=== PATIENT | male | born 1950 | race Caucasian/White ===

== ENCOUNTER 2020-08-22 04:31 | Day surgery (SDC) | payer OTHER ==
[2020-08-21 14:10] VITALS: BMI 32.0
[~2020-08-22 04:31] MED LIST: BACITRACIN 50,000 UNITS VIAL TP ONE; BUPIVACAINE HCL/PF 0.25% (2.5MG/ML) 10 ML VIAL IJ ONE
[2020-08-22] MEDS ORDERED: BUPIVACAINE HCL/PF 0.25% (2.5MG/ML) 10 ML VIAL ONE (14:11)
[2020-08-22] MEDS ORDERED: LIDOCAINE 1%/EPI 1:100000 (50 ML MULTI DOSE VIAL) ONE (14:11)
[2020-08-22] MEDS ORDERED: SODIUM CHLORIDE 0.9% P/F 10 ML VIAL IJ ONE (14:14)
[2020-08-22] MEDS ORDERED: BACITRACIN 50,000 UNITS VIAL TP ONE (15:00)
[2020-08-22] MEDS ORDERED: BUPIVACAINE HCL/PF 0.25% (2.5MG/ML) 10 ML VIAL IJ ONE ×2 (15:00)
[2020-08-22] MEDS ORDERED: MINERAL OIL 25 ML OIL TP ONE (15:18)
[2020-08-22] MEDS ORDERED: BACITRACIN 15 GM TUBE TOPICAL OINTMENT ONE (15:38)
[2020-08-22] MEDS ORDERED: CEFAZOLIN 1 GM in DEXTROSE 5%-WATER - 50 ML IVPB ONE (16:02)
[2020-08-22] MEDS ORDERED: oxyCODONE HCL 5 MG TABLET PO PRN ×2 (16:02)
[2020-08-22] MEDS ORDERED: ACETAMINOPHEN INJECTION 100 ML IVPB ONE (16:07)
[2020-08-22] MEDS ORDERED: ACETAMINOPHEN 1000 MG/100 ML VIAL (NON FORMULARY) IVPB ONE (16:12)
[2020-08-22] MEDS ORDERED: ceFAZolin SODIUM 1 GM VIAL ONE (16:30)
[2020-08-22 17:21] VITALS: BP 150/80; TEMP 98.1
[2020-08-22 17:39] VITALS: PULSE 65
== END 2020-08-22 17:20 | disposition home or self-care (01) ==
LOC: JASU-SURG 04:31
PROVIDERS: ATTEND Plastic Surgery
PROC: 0HRLX74 Replacement of Left Lower Leg Skin with Autologous Tissue Substitute, Partial Thickness, External Approach (ICD-10-PCS; 2020-08-22)
PROC: 0HBJXZZ Excision of Left Upper Leg Skin, External Approach (ICD-10-PCS; 2020-08-22)
PROC: 0JBP0ZZ Excision of Left Lower Leg Subcutaneous Tissue and Fascia, Open Approach (ICD-10-PCS; principal; 2020-08-22 14:00)
DX: T81.31XA Disruption of external operation (surgical) wound, not elsewhere classified, initial encounter (principal); Z85.828 Personal history of other malignant neoplasm of skin
CPT/HCPCS: 87070; 87077; 87186; 87205; 88305-TC; J0131

== ENCOUNTER 2020-09-21 19:00 | Inpatient (IN) | payer OTHER ==
[2020-09-21 19:18] VITALS: BMI 32.0
[2020-09-21] MEDS ORDERED: VANCOMYCIN 1 GM in D5W (PRE-DOCKED) 1,000 MG/250 ML IVPB ONE (19:57)
[2020-09-21] MEDS ORDERED: PIPERACILLIN/TAZOB 4.5 GM 4.5 GM in DEXTROSE 5%-WATER 100 ML IVPB ONE (19:57)
[2020-09-21] MEDS ORDERED: PIPERACILLIN/TAZOBACTAM 4.5 GM VIAL IVPB ONE (20:01)
[2020-09-21] MEDS ORDERED: VANCOMYCIN 1,000 MG VIAL (RESTRICTED TO ID ONLY) ONE (20:01)
[2020-09-21 20:13] LABS: HEMOGLOBIN 15.5 GM/dl (11.7-16.9); MCH 32.9 pg (25.7-33.7); MCHC 33.7 g/dl (32.0-35.9); MEAN CELL VOLUME 97.7 fl (80-96); MEAN PLT VOLUME 8.8 fl (7.5-11.1); PLATELET COUNT 108 K/MM3 (134-434); RBC 4.71 M/mm3 (4.00-5.60); RDW 13.3 % (11.9-15.9); WHITE BLOOD COUNT 11.8 K/mm3 (4.0-10.8)
[2020-09-21 20:15] LABS: ALBUMIN 4.4 g/dl (3.4-5.0); BILIRUBIN,TOTAL 0.6 mg/dl (0.2-1); CALCIUM 9.3 mg/dl (8.5-10); CREATININE 0.9 mg/dl (0.55-1.3); POTASSIUM 4.3 mmol/L (3.5-5.1); TOT PROT 7.5 g/dl (6.4-8.2)
[2020-09-21 21:14] LABS: PLATELET ESTIMATE SLT DECREASE
[2020-09-21] MEDS ORDERED: ATORVASTATIN CA 20 MG TABLET (FP) ONE (21:37)
[2020-09-21] MEDS ORDERED: VANCOMYCIN 500 MG VIAL (RESTRICTED TO ID ONLY) ONE (21:37)
[2020-09-21] MEDS ORDERED: HEPARIN NA (PORCINE) 5,000 UNITS/ML 1ML VIAL ONE (21:37)
[2020-09-21] MEDS: HEPARIN NA (PORCINE) 5,000 UNITS/ML 1ML VIAL SQ SCH (21:48)
[2020-09-21] MEDS: ATORVASTATIN CA 10 MG TABLET (FP) PO SCH (21:49)
[2020-09-21] MEDS ORDERED: VANCOMYCIN HCL 1,500 MG in DEXTROSE 5%-WATER - 500 ML IVPB ONE (22:00)
[2020-09-21] MEDS ORDERED: IBUPROFEN 600 MG TABLET (FP) PO ONE (23:49)
[2020-09-22] MEDS ORDERED: DEXTROSE 5%-WATER 100 ML IVPB ONE (03:56)
[2020-09-22] MEDS ORDERED: PIPERACILLIN/TAZOBACTAM 4.5 GM VIAL IVPB ONE (03:56)
[2020-09-22] MEDS ORDERED: PIPERACILLIN/TAZOB 4.5 GM 4.5 GM in DEXTROSE 5%-WATER 100 ML IVPB SCH (04:00)
[2020-09-22] MEDS: traMADol HCL 50 MG TABLET PO PRN ×2 (06:24→22:17)
[2020-09-22 08:18] LABS: BASO % 1.3 % (0-2.0); HEMATOCRIT 43.8 % (35.4-49); HEMOGLOBIN 15.3 GM/dl (11.7-16.9); LYMPH % 18.6 % (8-40); MCH 34.5 pg (25.7-33.7); MCHC 34.9 g/dl (32.0-35.9); MEAN CELL VOLUME 98.8 fl (80-96); MEAN PLT VOLUME 8.6 fl (7.5-11.1); MONO % 6.9 % (3.8-10.2); NEUT % 71.2 % (42.8-82.8); PLATELET COUNT 164 K/MM3 (134-434); RBC 4.43 M/mm3 (4.00-5.60); RDW 13.3 % (11.9-15.9); WHITE BLOOD COUNT 10.8 K/mm3 (4.0-10.8)
[2020-09-22 08:27] LABS: BILIRUBIN,TOTAL 0.8 mg/dl (0.2-1); CREATININE 0.9 mg/dl (0.55-1.3); TOT PROT 6.5 g/dl (6.4-8.2)
[2020-09-22] MEDS: VANCOMYCIN/WATER BAGS 1,250 MG/250 ML BAG IVPB SCH (09:48)
[2020-09-22] MEDS ORDERED: VANCOMYCIN HCL 1,500 MG in DEXTROSE 5%-WATER - 500 ML IVPB SCH (10:00)
[2020-09-22] MEDS ORDERED: PATIENT'S OWN MEDICATION (NON-FORMULARY) (Pravastatin Sodium 40 MG Tablet) PO SCH (10:00)
[2020-09-22] MEDS ORDERED: PATIENT'S OWN MEDICATION (NON-FORMULARY) (Candesartan/Hydrochlorothiazid [Candesartan-Hctz PO SCH (10:00)
[2020-09-22] MEDS: MULTIVITAMINS (DAILY MVI) TABLET (FP) PO SCH (10:04)
[2020-09-22] MEDS: metoPROLOL SUCCINATE 25 MG TAB.SR.24H (FP) PO SCH (10:04)
[2020-09-22] MEDS: HYDROCHLOROTHIAZIDE 12.5 MG CAPSULE (FP) PO SCH (10:04)
[2020-09-22] MEDS: ASCORBIC ACID 500 MG TABLET (FP) PO SCH (10:05)
[2020-09-22] MEDS: COLLAGENASE CLOSTRIDIUM HIST. 30 GRAMS TUBE TP SCH (10:05)
[2020-09-22] MEDS: VALSARTAN 160 MG TABLET PO SCH (10:07)
[2020-09-22] MEDS: HEPARIN NA (PORCINE) 5,000 UNITS/ML 1ML VIAL SQ SCH ×2 (10:07→21:36)
[2020-09-22] MEDS: ASPIRIN 81 MG CHEWABLE TABLETS PO SCH (10:08)
[2020-09-22] MEDS ORDERED: DEXTROSE 5%-WATER - 50 ML IVPB ONE ×2 (11:04→17:24)
[2020-09-22] MEDS ORDERED: PIPERACILLIN/TAZOBACTAM 3.375 GM VIAL IVPB ONE ×2 (11:04→17:24)
[2020-09-22] MEDS: PIPERACILLIN/TAZOB 3.375 GM 3.375 GM in DEXTROSE 5%-WATER - 50 ML IVPB SCH ×2 (11:07→17:32)
[2020-09-22] MEDS: ATORVASTATIN CA 10 MG TABLET (FP) PO SCH (21:36)
[2020-09-22] MEDS ORDERED: IBUPROFEN 600 MG TABLET (FP) PO ONE (22:01)
[2020-09-23] MEDS ORDERED: PIPERACILLIN/TAZOBACTAM 3.375 GM VIAL IVPB ONE (01:15)
[2020-09-23] MEDS ORDERED: DEXTROSE 5%-WATER - 50 ML IVPB ONE (01:15)
[2020-09-23] MEDS: PIPERACILLIN/TAZOB 3.375 GM 3.375 GM in DEXTROSE 5%-WATER - 50 ML IVPB SCH ×3 (01:21→17:52)
[2020-09-23 08:31] LABS: BASO % 2.1 % (0-2.0); EOS % 2.6 % (0-4.5); HEMATOCRIT 44.3 % (35.4-49); MCH 33.3 pg (25.7-33.7); MCHC 33.8 g/dl (32.0-35.9); MEAN CELL VOLUME 98.4 fl (80-96); MEAN PLT VOLUME 8.4 fl (7.5-11.1); MONO % 7.7 % (3.8-10.2); NEUT % 59.6 % (42.8-82.8); PLATELET COUNT 171 K/MM3 (134-434); RDW 13.5 % (11.9-15.9); WHITE BLOOD COUNT 9.2 K/mm3 (4.0-10.8)
[2020-09-23 08:47] LABS: CALCIUM 8.9 mg/dl (8.5-10); CREATININE 0.9 mg/dl (0.55-1.3); POTASSIUM 4.1 mmol/L (3.5-5.1)
[2020-09-23] MEDS ORDERED: PT OWN MED DRAWER 7, Y5N ONE (09:42)
[2020-09-23] MEDS: MULTIVITAMINS (DAILY MVI) TABLET (FP) PO SCH (10:01)
[2020-09-23] MEDS: VALSARTAN 160 MG TABLET PO SCH (10:02)
[2020-09-23] MEDS: ASCORBIC ACID 500 MG TABLET (FP) PO SCH (10:02)
[2020-09-23] MEDS: COLLAGENASE CLOSTRIDIUM HIST. 30 GRAMS TUBE TP SCH (10:03)
[2020-09-23] MEDS: metoPROLOL SUCCINATE 25 MG TAB.SR.24H (FP) PO SCH (10:03)
[2020-09-23] MEDS: HYDROCHLOROTHIAZIDE 12.5 MG CAPSULE (FP) PO SCH (10:04)
[2020-09-23] MEDS: ASPIRIN 81 MG CHEWABLE TABLETS PO SCH (10:04)
[2020-09-23] MEDS: HEPARIN NA (PORCINE) 5,000 UNITS/ML 1ML VIAL SQ SCH ×2 (10:04→21:20)
[2020-09-23] MEDS: VANCOMYCIN/WATER BAGS 1,250 MG/250 ML BAG IVPB SCH (12:25)
[2020-09-23] MEDS: ATORVASTATIN CA 10 MG TABLET (FP) PO SCH (21:13)
[2020-09-23] MEDS: traMADol HCL 50 MG TABLET PO PRN (21:22)
[2020-09-23] MEDS ORDERED: IBUPROFEN 600 MG TABLET (FP) PO ONE (22:00)
[2020-09-24] MEDS: PIPERACILLIN/TAZOB 3.375 GM 3.375 GM in DEXTROSE 5%-WATER - 50 ML IVPB SCH ×3 (02:02→18:39)
[2020-09-24] MEDS ORDERED: DEXTROSE 5%-WATER - 50 ML IVPB ONE ×2 (08:34→17:50)
[2020-09-24] MEDS ORDERED: PT OWN MED DRAWER 7, Y5N ONE (08:34)
[2020-09-24] MEDS ORDERED: PIPERACILLIN/TAZOBACTAM 3.375 GM VIAL IVPB ONE ×2 (08:34→17:50)
[2020-09-24] MEDS: VANCOMYCIN/WATER BAGS 1,250 MG/250 ML BAG IVPB SCH (08:48)
[2020-09-24] MEDS: ASCORBIC ACID 500 MG TABLET (FP) PO SCH (09:06)
[2020-09-24] MEDS: VALSARTAN 160 MG TABLET PO SCH (09:06)
[2020-09-24] MEDS: metoPROLOL SUCCINATE 25 MG TAB.SR.24H (FP) PO SCH (09:06)
[2020-09-24] MEDS: MULTIVITAMINS (DAILY MVI) TABLET (FP) PO SCH (09:06)
[2020-09-24] MEDS: COLLAGENASE CLOSTRIDIUM HIST. 30 GRAMS TUBE TP SCH (09:06)
[2020-09-24] MEDS: HYDROCHLOROTHIAZIDE 12.5 MG CAPSULE (FP) PO SCH (09:06)
[2020-09-24] MEDS: HEPARIN NA (PORCINE) 5,000 UNITS/ML 1ML VIAL SQ SCH ×2 (09:17→21:01)
[2020-09-24] MEDS: ASPIRIN 81 MG CHEWABLE TABLETS PO SCH (09:17)
[2020-09-24] MEDS ORDERED: IBUPROFEN 600 MG TABLET (FP) PO ONE (20:24)
[2020-09-24] MEDS: traMADol HCL 50 MG TABLET PO PRN (20:59)
[2020-09-24] MEDS: ATORVASTATIN CA 10 MG TABLET (FP) PO SCH (21:00)
[2020-09-25] MEDS ORDERED: DEXTROSE 5%-WATER - 50 ML IVPB ONE ×2 (01:49→07:49)
[2020-09-25] MEDS ORDERED: PIPERACILLIN/TAZOBACTAM 3.375 GM VIAL IVPB ONE ×3 (01:49→08:45)
[2020-09-25] MEDS: PIPERACILLIN/TAZOB 3.375 GM 3.375 GM in DEXTROSE 5%-WATER - 50 ML IVPB SCH (02:44)
[2020-09-25] MEDS ORDERED: LIDOCAINE HCL 1%, 10 MG/ML (20ML VIAL) ONE (07:19)
[2020-09-25] MEDS ORDERED: HEPARIN NA (PORCINE) 5,000 UNITS/ML 1ML VIAL ONE (07:19)
[2020-09-25] MEDS ORDERED: PROPOFOL 20 ML ONE (07:27)
[2020-09-25] MEDS ORDERED: MIDAZOLAM HCL 2 MG/2 ML SINGLE DOSE VIAL ONE ×2 (07:28→09:02)
[2020-09-25] MEDS ORDERED: SUCCINYLCHOLINE CHLORIDE 200 MG/10 ML SYRINGE ONE (07:28)
[2020-09-25] MEDS: VALSARTAN 160 MG TABLET PO SCH ×2 (07:53→09:20)
[2020-09-25] MEDS: HYDROCHLOROTHIAZIDE 12.5 MG CAPSULE (FP) PO SCH ×2 (07:54→09:25)
[2020-09-25] MEDS: metoPROLOL SUCCINATE 25 MG TAB.SR.24H (FP) PO SCH ×2 (07:54→09:26)
[2020-09-25] MEDS ORDERED: VANCOMYCIN 1,000 MG VIAL (RESTRICTED TO ID ONLY) IVPB ONE (08:30)
[2020-09-25] MEDS ORDERED: LIDOCAINE HCL 1%, 10 MG/ML (20ML VIAL) INF ONE ×2 (09:13)
[2020-09-25] MEDS: ASPIRIN 81 MG CHEWABLE TABLETS PO SCH (09:20)
[2020-09-25] MEDS: ASCORBIC ACID 500 MG TABLET (FP) PO SCH (09:26)
[2020-09-25] MEDS: HEPARIN NA (PORCINE) 5,000 UNITS/ML 1ML VIAL SQ SCH (09:26)
[2020-09-25] MEDS: MULTIVITAMINS (DAILY MVI) TABLET (FP) PO SCH (09:26)
[2020-09-25] MEDS: COLLAGENASE CLOSTRIDIUM HIST. 30 GRAMS TUBE TP SCH (09:27)
[2020-09-25] MEDS ORDERED: CLOPIDOGREL BISULFATE 75 MG TABLET (FP) PO SCH (10:00)
[2020-09-25] MEDS ORDERED: CLOPIDOGREL BISULFATE 75 MG TABLET (FP) PO ONE (10:20)
[2020-09-25] MEDS ORDERED: traMADol HCL 50 MG TABLET PO PRN (10:31)
[2020-09-25] MEDS ORDERED: ONDANSETRON 4 MG/2 ML VIAL IVPUSH PRN (10:31)
[2020-09-25] MEDS ORDERED: LACTATED RINGERS SOLUTION 1,000 ML IV SCH (10:45)
[2020-09-25 11:39] VITALS: BP 149/65; PULSE 62; TEMP 97.8
[2020-09-25] MEDS ORDERED: PIPERACILLIN/TAZOB 3.375 GM 3.375 GM in DEXTROSE 5%-WATER - 50 ML IVPB SCH (18:00)
[2020-09-25] MEDS ORDERED: HEPARIN NA (PORCINE) 5,000 UNITS/ML 1ML VIAL SQ SCH (22:00)
[2020-09-25] MEDS ORDERED: ATORVASTATIN CA 10 MG TABLET (FP) PO SCH (22:00)
[2020-09-26] MEDS ORDERED: VANCOMYCIN/WATER BAGS 1,250 MG/250 ML BAG IVPB SCH (08:30)
[2020-09-26] MEDS ORDERED: COLLAGENASE CLOSTRIDIUM HIST. 30 GRAMS TUBE TP SCH (10:00)
[2020-09-26] MEDS ORDERED: VALSARTAN 160 MG TABLET PO SCH (10:00)
[2020-09-26] MEDS ORDERED: HYDROCHLOROTHIAZIDE 12.5 MG CAPSULE (FP) PO SCH (10:00)
[2020-09-26] MEDS ORDERED: MULTIVITAMINS (DAILY MVI) TABLET (FP) PO SCH (10:00)
[2020-09-26] MEDS ORDERED: ASCORBIC ACID 500 MG TABLET (FP) PO SCH (10:00)
[2020-09-26] MEDS ORDERED: ASPIRIN 81 MG CHEWABLE TABLETS PO SCH (10:00)
[2020-09-26] MEDS ORDERED: metoPROLOL SUCCINATE 25 MG TAB.SR.24H (FP) PO SCH (10:00)
== END 2020-09-25 16:52 | disposition home or self-care (01) | DRG 253 ==
LOC: FER 19:00 → FM/S 20:03 → UNDOADMIN 09-22 00:15 → J4W 09-24 16:20
PROVIDERS: ADMIT Internal Medicine; ATTEND Family Medicine
PROC: B40DYZZ Plain Radiography of Aorta and Bilateral Lower Extremity Arteries using Other Contrast (ICD-10-PCS; 2020-09-25)
PROC: B40GYZZ Plain Radiography of Left Lower Extremity Arteries using Other Contrast (ICD-10-PCS; 2020-09-25)
PROC: 3E033GC Introduction of Other Therapeutic Substance into Peripheral Vein, Percutaneous Approach (ICD-10-PCS; 2020-09-25)
PROC: 047L3DZ Dilation of Left Femoral Artery with Intraluminal Device, Percutaneous Approach (ICD-10-PCS; principal; 2020-09-25 09:00)
DX: I73.9 Peripheral vascular disease, unspecified (principal); L97.828 Non-pressure chronic ulcer of other part of left lower leg with other specified severity; L03.116 Cellulitis of left lower limb; I25.10 Atherosclerotic heart disease of native coronary artery without angina pectoris; I10 Essential (primary) hypertension; E78.5 Hyperlipidemia, unspecified; F17.210 Nicotine dependence, cigarettes, uncomplicated; S81.802A Unspecified open wound, left lower leg, initial encounter; Z20.822 Contact with and (suspected) exposure to COVID-19; Z95.5 Presence of coronary angioplasty implant and graft
CPT/HCPCS: 36415; 71045-TC-FY; 73590-TC-LT-FY; 76000-TC-FY; 80048; 80053; 83605; 85025; 85651; 86140; 86850; 86900; 86901; 87040; 93005; 93971-TC; 94760; 99285-25; C9803; G0480; J1644; U0003

== ENCOUNTER 2020-10-16 09:56 | Inpatient (IN) | payer OTHER ==
[2020-10-16 10:01] VITALS: BMI 32.0
[2020-10-16] MEDS ORDERED: VANCOMYCIN 1,000 MG in DEXTROSE 5%-WATER - 250 ML IVPB ONE (11:13)
[2020-10-16] MEDS ORDERED: PIPERACILLIN/TAZOB 3.375 GM 3.375 GM in DEXTROSE 5%-WATER - 50 ML IVPB ONE (11:14)
[2020-10-16] MEDS ORDERED: VANCOMYCIN 1 GRAM (PRE-DOCKED) 1,000 MG/250 ML BAG IVPB ONE (11:36)
[2020-10-16] MEDS ORDERED: PIPERACILLIN/TAZOB 3.375 GM 3.375 GM/50 ML BAG IVPB ONE ×2 (11:37→18:34)
[2020-10-16 11:46] LABS: BASO % 0.6 % (0-2.0); EOS % 1.9 % (0-4.5); HEMATOCRIT 44.1 % (35.4-49); HEMOGLOBIN 15.3 GM/dL (11.7-16.9); LYMPH % 20.9 % (8-40); MCH 33.7 pg (25.7-33.7); MCHC 34.6 g/dl (32.0-35.9); MEAN CELL VOLUME 97.4 fl (80-96); MEAN PLT VOLUME 8.3 fl (7.5-11.1); NEUT % 70.6 % (42.8-82.8); PLATELET COUNT 191 K/MM3 (134-434); RBC 4.53 M/mm3 (4.00-5.60); RDW 14.1 % (11.9-15.9); WHITE BLOOD COUNT 12.6 K/mm3 (4.0-10.0)
[2020-10-16 11:54] LABS: INR 0.97 (0.83-1.09); PROTHROMBIN TIME (PATIENT) 11.7 SEC (9.7-13.0)
[2020-10-16 12:09] LABS: POTASSIUM 4.2 mmol/L (3.5-5.1)
[2020-10-16 12:13] LABS: ALBUMIN 4.2 g/dl (3.4-5.0); BLOOD UREA NITROGEN 22.7 mg/dL (7-18); CALCIUM 9.9 mg/dL (8.5-10.1)
[2020-10-16 12:19] LABS: BILIRUBIN,TOTAL 0.4 mg/dL (0.2-1); TOT PROT 7.7 g/dl (6.4-8.2)
[2020-10-16] MEDS ORDERED: IBUPROFEN 400 MG TABLET (FP) PO ONE ×2 (14:37→14:38)
[2020-10-16] MEDS: PIPERACILLIN/TAZOB 3.375 GM 3.375 GM in DEXTROSE 5%-WATER - 50 ML IVPB SCH (18:41)
[2020-10-16] MEDS ORDERED: ATORVASTATIN CA 10 MG TABLET (FP) PO SCH (22:00)
[2020-10-16] MEDS ORDERED: GABAPENTIN 300 MG CAPSULE PO SCH (22:00)
[2020-10-16] MEDS ORDERED: ACETAMINOPHEN 500 MG TABLET (FP) PO ONE (23:42)
[2020-10-17] MEDS ORDERED: PIPERACILLIN/TAZOBACTAM 3.375 GM VIAL IVPB ONE ×3 (01:30→17:22)
[2020-10-17] MEDS ORDERED: DEXTROSE 5%-WATER - 50 ML IVPB ONE ×3 (01:30→17:22)
[2020-10-17] MEDS: PIPERACILLIN/TAZOB 3.375 GM 3.375 GM in DEXTROSE 5%-WATER - 50 ML IVPB SCH ×3 (02:00→17:41)
[2020-10-17] MEDS ORDERED: DEXTROSE 5%-NORMAL SALINE 1,000 ML IV SCH ×2 (08:45→16:13)
[2020-10-17] MEDS ORDERED: PATIENT'S OWN MEDICATION (NON-FORMULARY) (Candesartan/Hydrochlorothiazid [Candesartan-Hctz PO SCH (10:00)
[2020-10-17] MEDS ORDERED: ASCORBIC ACID 500 MG TABLET (FP) PO SCH (10:00)
[2020-10-17] MEDS ORDERED: VALSARTAN 160 MG TABLET PO SCH (10:00)
[2020-10-17] MEDS ORDERED: metoPROLOL SUCCINATE 25 MG TAB.SR.24H (FP) PO SCH (10:00)
[2020-10-17] MEDS ORDERED: VANCOMYCIN HCL 1,500 MG in DEXTROSE 5%-WATER - 500 ML IVPB SCH (10:00)
[2020-10-17] MEDS ORDERED: CLOPIDOGREL BISULFATE 75 MG TABLET (FP) PO SCH (10:00)
[2020-10-17] MEDS ORDERED: HYDROCHLOROTHIAZIDE 12.5 MG CAPSULE (FP) PO SCH (10:00)
[2020-10-17] MEDS ORDERED: ERGOCALCIFEROL (VIT D2) 50,000 UNIT (1.25 MG) CAPSULE PO SCH (10:00)
[2020-10-17] MEDS ORDERED: ASPIRIN 81 MG CHEWABLE TABLETS PO SCH (10:00)
[2020-10-17] MEDS ORDERED: VANCOMYCIN PREMIX 1.5 GM 1,500 MG/300 ML BAG IVPB SCH (12:44)
[2020-10-17] MEDS ORDERED: LIDOCAINE 1%/EPI 1:100000 (50 ML MULTI DOSE VIAL) ONE (14:02)
[2020-10-17] MEDS ORDERED: LIDOCAINE HCL 1%, 10 MG/ML (20ML VIAL) ONE (14:02)
[2020-10-17] MEDS ORDERED: BUPIVACAINE HCL/PF 0.25% (2.5MG/ML) 10 ML VIAL ONE (14:05)
[2020-10-17] MEDS ORDERED: oxyCODONE HCL 5 MG TABLET PO PRN ×2 (14:12→16:13)
[2020-10-17] MEDS ORDERED: PROMETHAZINE HCL 25 MG/1 ML VIAL IVPB PRN ×2 (14:12→16:13)
[2020-10-17] MEDS ORDERED: ONDANSETRON 4 MG/2 ML VIAL IVPUSH PRN ×2 (14:12→16:13)
[2020-10-17] MEDS ORDERED: LACTATED RINGERS SOLUTION 1,000 ML IV SCH (14:15)
[2020-10-17] MEDS ORDERED: MINERAL OIL 25 ML OIL TP ONE (14:30)
[2020-10-17] MEDS ORDERED: BACITRACIN 50,000 UNITS VIAL TP ONE (14:35)
[2020-10-17] MEDS ORDERED: BUPIVACAINE HCL/PF 0.25% (2.5MG/ML) 10 ML VIAL IJ ONE ×3 (14:58)
[2020-10-17] MEDS ORDERED: LIDOCAINE 1%/EPI 1:100000 (50 ML MULTI DOSE VIAL) NR ONE ×3 (14:58)
[2020-10-17] MEDS: LACTATED RINGERS SOLUTION 1,000 ML IV SCH (17:26)
[2020-10-17] MEDS ORDERED: IBUPROFEN 400 MG TABLET (FP) PO ONE (20:11)
[2020-10-17] MEDS ORDERED: PT OWN MED DRAWER 7, Y5N ONE (20:45)
[2020-10-17] MEDS: GABAPENTIN 300 MG CAPSULE PO SCH (21:05)
[2020-10-17] MEDS: ATORVASTATIN CA 10 MG TABLET (FP) PO SCH (21:06)
[2020-10-17] MEDS: VANCOMYCIN PREMIX 1.5 GM 1,500 MG/300 ML BAG IVPB SCH (21:31)
[2020-10-17] MEDS ORDERED: PATIENT'S OWN MEDICATION (NON-FORMULARY) (Gabapentin [Neurontin] 600 MG Tablet) PO SCH (22:00)
[2020-10-18] MEDS ORDERED: PT OWN MED DRAWER 7, Y5N ONE ×3 (02:09→20:35)
[2020-10-18] MEDS ORDERED: PIPERACILLIN/TAZOBACTAM 3.375 GM VIAL IVPB ONE ×3 (02:09→17:52)
[2020-10-18] MEDS ORDERED: DEXTROSE 5%-WATER - 50 ML IVPB ONE ×3 (02:09→17:52)
[2020-10-18] MEDS: PIPERACILLIN/TAZOB 3.375 GM 3.375 GM in DEXTROSE 5%-WATER - 50 ML IVPB SCH ×3 (02:14→18:10)
[2020-10-18] MEDS: LACTATED RINGERS SOLUTION 1,000 ML IV SCH ×2 (02:15→16:35)
[2020-10-18 08:25] LABS: HEMATOCRIT 41.8 % (35.4-49); HEMOGLOBIN 14.2 GM/dL (11.7-16.9); MCH 33.5 pg (25.7-33.7); MEAN CELL VOLUME 98.3 fl (80-96); MEAN PLT VOLUME 8.8 fl (7.5-11.1); PLATELET COUNT 179 K/MM3 (134-434); RBC 4.25 M/mm3 (4.00-5.60); RDW 13.9 % (11.9-15.9); WHITE BLOOD COUNT 16.1 K/mm3 (4.0-10.0)
[2020-10-18 08:54] LABS: POTASSIUM 4.2 mmol/L (3.5-5.1)
[2020-10-18 08:57] LABS: ALBUMIN 3.6 g/dl (3.4-5.0); BLOOD UREA NITROGEN 23.8 mg/dL (7-18)
[2020-10-18 09:01] LABS: BILIRUBIN,TOTAL 0.5 mg/dL (0.2-1)
[2020-10-18 09:02] LABS: TOT PROT 6.7 g/dl (6.4-8.2)
[2020-10-18] MEDS: VALSARTAN 160 MG TABLET PO SCH (10:40)
[2020-10-18] MEDS: HYDROCHLOROTHIAZIDE 12.5 MG CAPSULE (FP) PO SCH (10:40)
[2020-10-18] MEDS: CLOPIDOGREL BISULFATE 75 MG TABLET (FP) PO SCH (10:41)
[2020-10-18] MEDS: metoPROLOL SUCCINATE 25 MG TAB.SR.24H (FP) PO SCH (10:41)
[2020-10-18] MEDS: ASCORBIC ACID 500 MG TABLET (FP) PO SCH (10:41)
[2020-10-18] MEDS: MULTIVITAMINS (DAILY MVI) TABLET (FP) PO SCH (10:41)
[2020-10-18] MEDS: VANCOMYCIN PREMIX 1.5 GM 1,500 MG/300 ML BAG IVPB SCH ×2 (11:13→21:14)
[2020-10-18] MEDS: ATORVASTATIN CA 10 MG TABLET (FP) PO SCH (21:14)
[2020-10-18] MEDS: GABAPENTIN 300 MG CAPSULE PO SCH (21:14)
[2020-10-19] MEDS ORDERED: PIPERACILLIN/TAZOBACTAM 3.375 GM VIAL IVPB ONE ×2 (01:02→10:32)
[2020-10-19] MEDS ORDERED: DEXTROSE 5%-WATER - 50 ML IVPB ONE ×2 (01:02→10:32)
[2020-10-19] MEDS: PIPERACILLIN/TAZOB 3.375 GM 3.375 GM in DEXTROSE 5%-WATER - 50 ML IVPB SCH ×2 (01:24→10:42)
[2020-10-19] MEDS: LACTATED RINGERS SOLUTION 1,000 ML IV SCH (01:44)
[2020-10-19] MEDS ORDERED: PT OWN MED DRAWER 7, Y5N ONE (10:31)
[2020-10-19] MEDS: VALSARTAN 160 MG TABLET PO SCH (10:41)
[2020-10-19] MEDS: HYDROCHLOROTHIAZIDE 12.5 MG CAPSULE (FP) PO SCH (10:41)
[2020-10-19] MEDS: MULTIVITAMINS (DAILY MVI) TABLET (FP) PO SCH (10:42)
[2020-10-19] MEDS: metoPROLOL SUCCINATE 25 MG TAB.SR.24H (FP) PO SCH (10:42)
[2020-10-19] MEDS: CLOPIDOGREL BISULFATE 75 MG TABLET (FP) PO SCH (10:42)
[2020-10-19] MEDS: ASCORBIC ACID 500 MG TABLET (FP) PO SCH (10:42)
[2020-10-19] MEDS: VANCOMYCIN PREMIX 1.5 GM 1,500 MG/300 ML BAG IVPB SCH (11:22)
[2020-10-19 16:03] VITALS: BP 155/79; PULSE 66; TEMP 98.5
[2020-10-24] MEDS ORDERED: ERGOCALCIFEROL (VIT D2) 50,000 UNIT (1.25 MG) CAPSULE PO SCH (10:00)
== END 2020-10-19 16:44 | disposition home health service (06) | DRG 902 ==
LOC: JER 09:56 → JERBED 11:23 → J8W 22:01 → J2C 10-17 16:27 → J8W 10-17 16:29
PROVIDERS: ADMIT Family Medicine; ATTEND Family Medicine
PROC: 0HRLX74 Replacement of Left Lower Leg Skin with Autologous Tissue Substitute, Partial Thickness, External Approach (ICD-10-PCS; 2020-10-17)
PROC: 0JBP0ZZ Excision of Left Lower Leg Subcutaneous Tissue and Fascia, Open Approach (ICD-10-PCS; principal; 2020-10-17 14:00)
DX: T81.32XA Disruption of internal operation (surgical) wound, not elsewhere classified, initial encounter (principal); L97.929 Non-pressure chronic ulcer of unspecified part of left lower leg with unspecified severity; I25.10 Atherosclerotic heart disease of native coronary artery without angina pectoris; I10 Essential (primary) hypertension; E78.5 Hyperlipidemia, unspecified; I73.9 Peripheral vascular disease, unspecified; Y83.8 Other surgical procedures as the cause of abnormal reaction of the patient, or of later complication, without mention of misadventure at the time of the procedure
CPT/HCPCS: 36415; 71046-TC-FY; 80053; 85025; 85027; 85610; 86850; 86900; 86901; 88304-TC; 93005; 93010; 94760; 99285-25; C9803; G0277; U0003

== ENCOUNTER 2021-11-02 12:31 | Inpatient (IN) | payer BC, OTHER ==
[2021-11-02 14:07] LABS: BASO % 0.5 % (0-2.0); EOS % 1.1 % (0-4.5); HEMOGLOBIN 15.5 GM/dL (11.7-16.9); MCH 33.9 pg (25.7-33.7); MCHC 34.4 g/dl (32.0-35.9); MEAN CELL VOLUME 98.5 fl (80-96); MEAN PLT VOLUME 9.1 fl (7.5-11.1); NEUT % 71.4 % (42.8-82.8); PLATELET COUNT 152 10^3/uL (134-434); RBC 4.57 M/mm3 (4.00-5.60); RDW 13.9 % (11.9-15.9); WHITE BLOOD COUNT 7.9 K/mm3 (4.0-10.0)
[2021-11-02 14:23] LABS: CALCIUM 9.3 mg/dL (8.5-10.1)
[2021-11-02 14:24] LABS: ALBUMIN 4.1 g/dl (3.4-5.0); MAGNESIUM 2.3 mg/dL (1.8-2.4)
[2021-11-02 14:29] LABS: BILIRUBIN,TOTAL 0.4 mg/dL (0.2-1)
[2021-11-02] MEDS ORDERED: metoPROLOL SUCCINATE 25 MG TAB.SR.24H (FP) PO ONE (16:05)
[2021-11-02] MEDS ORDERED: ACETAMINOPHEN 325 MG TABLET (FP) PO PRN (16:07)
[2021-11-02] MEDS ORDERED: metoPROLOL SUCCINATE 25 MG TAB.SR.24H (FP) ONE (16:15)
[2021-11-02 17:11] LABS: INR 1.14 (0.83-1.09); PROTHROMBIN TIME (PATIENT) 13.1 SEC (9.7-13.0)
[2021-11-02 17:14] LABS: ACTIVATED PTT 28.9 SECONDS (25.2-36.5)
[2021-11-02] MEDS ORDERED: HEPARIN NA (PORCINE) 5,000 UNITS/ML 1ML VIAL IVPUSH PRN ×2 (17:19)
[2021-11-02] MEDS: DEXTROSE IVPB SCH (18:59)
[2021-11-02] MEDS: HEPARIN IVPB SCH (18:59)
[2021-11-02] MEDS: [UNRECOGNIZED DRUG - OTHER] IVPB SCH (18:59)
[2021-11-02 19:59] VITALS: BMI 32.8
[2021-11-02] MEDS: ATORVASTATIN CA 40 MG TABLET (FP) PO SCH (21:07)
[2021-11-02] MEDS ORDERED: HEPARIN NA (PORCINE) 5,000 UNITS/ML 1ML VIAL SQ SCH (22:00)
[2021-11-03 01:50] LABS: INR 1.11 (0.83-1.09); PROTHROMBIN TIME (PATIENT) 12.8 SEC (9.7-13.0)
[2021-11-03 01:51] LABS: ACTIVATED PTT 33.8 SECONDS (25.2-36.5)
[2021-11-03 07:26] LABS: HEMATOCRIT 44.7 % (35.4-49); HEMOGLOBIN 15.5 GM/dL (11.7-16.9); MCH 33.9 pg (25.7-33.7); MCHC 34.5 g/dl (32.0-35.9); MEAN PLT VOLUME 8.9 fl (7.5-11.1); PLATELET COUNT 139 10^3/uL (134-434); RBC 4.56 M/mm3 (4.00-5.60); RDW 14.1 % (11.9-15.9); WHITE BLOOD COUNT 10.3 K/mm3 (4.0-10.0)
[2021-11-03 09:10] LABS: ALBUMIN 3.8 g/dl (3.4-5.0); BILIRUBIN,TOTAL 0.6 mg/dL (0.2-1); BLOOD UREA NITROGEN 18.6 mg/dL (7-18); TOT PROT 6.5 g/dl (6.4-8.2)
[2021-11-03] MEDS: CLOPIDOGREL BISULFATE 75 MG TABLET (FP) PO SCH (10:15)
[2021-11-03] MEDS: metoPROLOL SUCCINATE 25 MG TAB.SR.24H (FP) PO SCH (10:15)
[2021-11-03] MEDS: ASPIRIN COATED 81 MG TABLET.EC PO SCH (10:15)
[2021-11-03 10:36] LABS: INR 1.13 (0.83-1.09)
[2021-11-03 10:39] LABS: ACTIVATED PTT 64.2 SECONDS (25.2-36.5)
[2021-11-03] MEDS: LOSARTAN 50MG/HCTZ 12.5MG 1 TAB PO SCH (11:32)
[2021-11-03 14:05] LABS: BASO % 0.7 % (0-2.0); EOS % 1.8 % (0-4.5); HEMOGLOBIN 15.7 GM/dL (11.7-16.9); LYMPH % 27.5 % (8-40); MCH 34.2 pg (25.7-33.7); MEAN CELL VOLUME 97.7 fl (80-96); MEAN PLT VOLUME 8.4 fl (7.5-11.1); MONO % 6.1 % (3.8-10.2); NEUT % 63.9 % (42.8-82.8); PLATELET COUNT 138 10^3/uL (134-434); RDW 13.7 % (11.9-15.9); WHITE BLOOD COUNT 7.6 K/mm3 (4.0-10.0)
[2021-11-03] MEDS: ATORVASTATIN CA 40 MG TABLET (FP) PO SCH (21:03)
[2021-11-03] MEDS: HEPARIN IVPB SCH (21:03)
[2021-11-03] MEDS: DEXTROSE IVPB SCH (21:03)
[2021-11-03] MEDS: [UNRECOGNIZED DRUG - OTHER] IVPB SCH (21:03)
[2021-11-04 05:59] VITALS: TEMP 97.7
[2021-11-04 06:43] LABS: HEMATOCRIT 44.1 % (35.4-49); HEMOGLOBIN 15.1 GM/dL (11.7-16.9); MCH 33.7 pg (25.7-33.7); MCHC 34.2 g/dl (32.0-35.9); MEAN CELL VOLUME 98.5 fl (80-96); MEAN PLT VOLUME 9.5 fl (7.5-11.1); PLATELET COUNT 133 10^3/uL (134-434); RBC 4.48 M/mm3 (4.00-5.60); RDW 13.6 % (11.9-15.9); WHITE BLOOD COUNT 7.7 K/mm3 (4.0-10.0)
[2021-11-04 11:15] VITALS: BP 136/87; PULSE 58
[2021-11-04] MEDS: ASPIRIN COATED 81 MG TABLET.EC PO SCH (12:07)
[2021-11-04] MEDS: CLOPIDOGREL BISULFATE 75 MG TABLET (FP) PO SCH (12:08)
[2021-11-04] MEDS: metoPROLOL SUCCINATE 25 MG TAB.SR.24H (FP) PO SCH (12:08)
[2021-11-04] MEDS: LOSARTAN 50MG/HCTZ 12.5MG 1 TAB PO SCH (12:08)
== END 2021-11-04 11:50 | disposition short-term general hospital (02) | DRG 282 ==
LOC: JER 12:31 → JERBED 14:38 → J2W 19:23
PROVIDERS: ADMIT Family Medicine; ATTEND Family Medicine
DX: I21.4 Non-ST elevation (NSTEMI) myocardial infarction (principal); I10 Essential (primary) hypertension; I25.10 Atherosclerotic heart disease of native coronary artery without angina pectoris; E78.5 Hyperlipidemia, unspecified; I73.9 Peripheral vascular disease, unspecified; G62.9 Polyneuropathy, unspecified; I25.2 Old myocardial infarction; R42 Dizziness and giddiness
CPT/HCPCS: 36415; 70450-TC; 70496-TC; 71045-TC-FY; 80053; 80061; 82550; 83735; 84443; 84484; 85025; 85027; 85610; 85730; 93005; 93010; 99285-25; C9803; J1644; Q9967; U0003; U0005

== ENCOUNTER 2022-01-30 07:26 | Day surgery (SDC) | payer OTHER ==
[2022-01-28 14:55] VITALS: BMI 32.3
[2022-01-30] MEDS ORDERED: LIDOCAINE HCL 1%, 10 MG/ML (20ML VIAL) ONE (08:04)
[2022-01-30] MEDS ORDERED: BUPIVACAINE HCL 100 ML ONE (08:05)
[2022-01-30] MEDS ORDERED: PHENYLEPHRINE HCL 10 MG/1 ML SINGLE DOSE VIAL ONE (08:55)
[2022-01-30] MEDS ORDERED: PROPOFOL 20 ML ONE (08:55)
[2022-01-30] MEDS ORDERED: SUCCINYLCHOLINE CHLORIDE 200 MG/10 ML SYRINGE ONE (08:55)
[2022-01-30] MEDS ORDERED: MIDAZOLAM HCL 2 MG/2 ML SINGLE DOSE VIAL ONE (08:55)
[2022-01-30] MEDS ORDERED: DEXAMETHASONE SOD PHOSPHATE 4 MG/1 ML VIAL ONE ×2 (08:59→10:06)
[2022-01-30] MEDS ORDERED: ONDANSETRON 4 MG/2 ML VIAL ONE ×2 (08:59→10:06)
[2022-01-30] MEDS ORDERED: ceFAZolin SODIUM 1 GM VIAL ONE (09:18)
[2022-01-30] MEDS ORDERED: METOPROLOL TARTRATE 5 MG/5 ML VIAL ONE (09:51)
[2022-01-30] MEDS ORDERED: oxyCODONE HCL 5 MG TABLET PO PRN ×2 (10:54)
[2022-01-30] MEDS ORDERED: ONDANSETRON 4 MG/2 ML VIAL IVPUSH PRN (10:54)
[2022-01-30] MEDS ORDERED: LACTATED RINGERS SOLUTION 1,000 ML IV SCH (11:00)
[2022-01-30 12:01] VITALS: TEMP 98.1
[2022-01-30 12:15] VITALS: BP 126/63; PULSE 66
== END 2022-01-30 12:50 | disposition home or self-care (01) ==
LOC: FASU 07:26
PROVIDERS: ATTEND Orthopaedic Surgery
PROC: 0PBJ0ZZ Excision of Left Radius, Open Approach (ICD-10-PCS; 2022-01-30)
PROC: 0MB40ZZ Excision of Left Elbow Bursa and Ligament, Open Approach (ICD-10-PCS; principal; 2022-01-30 09:39)
DX: M70.22 Olecranon bursitis, left elbow (principal); M25.722 Osteophyte, left elbow
CPT/HCPCS: 88304-TC; 88311-TC; 94760

== ENCOUNTER 2022-03-12 12:58 | Observation (INO) | payer OTHER ==
[2022-03-12 14:14] LABS: HEMATOCRIT 43.6 % (35.4-49); HEMOGLOBIN 15.4 G/dL (11.7-16.9); INR 1.07 (0.83-1.09); MCH 34.8 pg (25.7-33.7); MCHC 35.4 g/dl (32.0-35.9); MEAN CELL VOLUME 98.1 fl (80-96); MEAN PLT VOLUME 8.6 fl (7.5-11.1); PLATELET COUNT 185.5 10^3/uL (134-434); PROTHROMBIN TIME (PATIENT) 12.3 SEC (9.7-13.0); RBC 4.44 10^6/uL (4.00-5.60); WHITE BLOOD COUNT 9.1 10^3/uL (4.0-10.8)
[2022-03-12 14:21] LABS: ALBUMIN 4.3 g/dl (3.4-5.0); BILIRUBIN,TOTAL 0.6 mg/dl (0.2-1); CALCIUM 9.7 mg/dl (8.5-10); CREATININE 0.9 mg/dl (0.55-1.3); TOT PROT 7.6 g/dl (6.4-8.2)
[2022-03-12] MEDS ORDERED: CEFTRIAXONE 2 GM in DEXTROSE 5%-WATER 2 GM/100 ML BAG IVPB SCH (16:30)
[2022-03-12] MEDS ORDERED: CEFTRIAXONE 2 GM in DEXTROSE 5%-WATER 2 GM/100 ML BAG IVPB ONE (17:00)
[2022-03-12] MEDS ORDERED: ACETAMINOPHEN 325 MG TABLET (FP) PO PRN (23:08)
[2022-03-12 23:18] VITALS: BMI 33.0
[2022-03-13 08:25] LABS: CALCIUM 9.1 mg/dl (8.5-10); CREATININE 0.9 mg/dl (0.55-1.3)
[2022-03-13] MEDS ORDERED: DEXTROSE 5%-WATER 100 ML IVPB ONE (09:36)
[2022-03-13] MEDS ORDERED: CEFTRIAXONE 2 GM in DEXTROSE 5%-WATER 100 ML IVPB SCH (10:00)
[2022-03-13] MEDS ORDERED: CLOPIDOGREL BISULFATE 75 MG TABLET (FP) PO SCH (10:00)
[2022-03-13] MEDS ORDERED: CEFTRIAXONE 2 GM-D5W BAG 2 GM/50 ML BAG IVPB SCH (10:00)
[2022-03-13] MEDS ORDERED: VALSARTAN 160 MG TABLET PO SCH (10:00)
[2022-03-13] MEDS ORDERED: metoPROLOL SUCCINATE 25 MG TAB.SR.24H (FP) PO SCH (10:00)
[2022-03-13] MEDS ORDERED: HYDROCHLOROTHIAZIDE 12.5 MG CAPSULE (FP) PO SCH (10:00)
[2022-03-13] MEDS ORDERED: ASPIRIN 81 MG CHEWABLE TABLETS PO SCH (10:00)
[2022-03-13] MEDS ORDERED: MULTIVITAMINS (DAILY MVI) TABLET (FP) PO SCH (10:00)
[2022-03-13] MEDS ORDERED: ASCORBIC ACID 500 MG TABLET (FP) PO SCH (10:00)
[2022-03-13 10:28] LABS: HEMATOCRIT 44.9 % (35.4-49); MCH 32.9 pg (25.7-33.7); MCHC 33.4 g/dl (32.0-35.9); MEAN CELL VOLUME 98.2 fl (80-96); MEAN PLT VOLUME 9.1 fl (7.5-11.1); PLATELET COUNT 179 10^3/uL (134-434); RBC 4.57 M/mm3 (4.00-5.60); RDW 13.8 % (11.9-15.9); WHITE BLOOD COUNT 7.7 K/mm3 (4.0-10.0)
[2022-03-13 13:26] VITALS: BP 137/79; PULSE 74; TEMP 97.5
[2022-03-13] MEDS ORDERED: ATORVASTATIN CA 10 MG TABLET (FP) PO SCH (22:00)
== END 2022-03-13 13:47 | disposition home or self-care (01) ==
LOC: FER 12:58 → INTOOBSV 13:23 → FM/S 13:23
PROVIDERS: ADMIT Family Medicine; ATTEND Family Medicine
PROC: 3E03329 Introduction of Other Anti-infective into Peripheral Vein, Percutaneous Approach (ICD-10-PCS; principal; 2022-03-12)
PROC: 0JHD3XZ Insertion of Tunneled Vascular Access Device into Right Upper Arm Subcutaneous Tissue and Fascia, Percutaneous Approach (ICD-10-PCS; 2022-03-12)
DX: L02.414 Cutaneous abscess of left upper limb (principal); I25.10 Atherosclerotic heart disease of native coronary artery without angina pectoris; I73.9 Peripheral vascular disease, unspecified; E78.5 Hyperlipidemia, unspecified; I11.9 Hypertensive heart disease without heart failure; Z86.14 Personal history of Methicillin resistant Staphylococcus aureus infection; C76.52 Malignant neoplasm of left lower limb; T81.49XA Infection following a procedure, other surgical site, initial encounter; Y82.8 Other medical devices associated with adverse incidents; E66.8 Other obesity; Z68.33 Body mass index [BMI] 33.0-33.9, adult; X58.XXXA Exposure to other specified factors, initial encounter; Z87.891 Personal history of nicotine dependence
CPT/HCPCS: 0241U-QW; 36415; 36569; 71045-TC-FY; 73070-TC-LT-FY; 77001-TC-FY; 80048; 80053; 81003; 85027; 85610; 87040; 93005; 96365; 96366; 96372; 99285-25; C1751; G0378

== ENCOUNTER 2022-04-15 04:33 | Day surgery (SDC) | payer OTHER ==
[2022-04-10 10:52] VITALS: BMI 32.4
[~2022-04-15 04:33] MED LIST changes: +BACITRACIN 15 GM TUBE TOPICAL OINTMENT TP ONE; -BACITRACIN 50,000 UNITS VIAL TP ONE; -BUPIVACAINE HCL/PF 0.25% (2.5MG/ML) 10 ML VIAL IJ ONE
[2022-04-15] MEDS ORDERED: LIDOCAINE 1%/EPI 1:100000 (20 ML MULTI DOSE VIAL) ONE (11:06)
[2022-04-15] MEDS ORDERED: LIDOCAINE HCL/PF 2% SDV 5ML VIAL ONE (12:43)
[2022-04-15] MEDS ORDERED: ONDANSETRON 4 MG/2 ML VIAL ONE (12:43)
[2022-04-15] MEDS ORDERED: KETOROLAC TROMETHAMINE 30 MG/1 ML VIAL ONE (12:43)
[2022-04-15] MEDS ORDERED: PROPOFOL 40 ML ONE (12:43)
[2022-04-15] MEDS ORDERED: DEXAMETHASONE SOD PHOSPHATE 4 MG/1 ML VIAL ONE (12:43)
[2022-04-15] MEDS ORDERED: ceFAZolin SODIUM 1 GM VIAL ONE (12:43)
[2022-04-15] MEDS ORDERED: MIDAZOLAM HCL 2 MG/2 ML SINGLE DOSE VIAL ONE (12:44)
[2022-04-15] MEDS ORDERED: GENTAMICIN SO4 80 MG/2 ML VIAL ONE (13:20)
[2022-04-15] MEDS ORDERED: GENTAMICIN SO4 80 MG/2 ML VIAL IVPB ONE (14:30)
[2022-04-15] MEDS ORDERED: MINERAL OIL 25 ML OIL TP ONE (14:43)
[2022-04-15] MEDS ORDERED: LIDOCAINE 1%/EPI 1:100000 (20 ML MULTI DOSE VIAL) IJ ONE ×3 (14:43→16:05)
[2022-04-15] MEDS ORDERED: ONDANSETRON 4 MG/2 ML VIAL IVPUSH PRN (14:46)
[2022-04-15] MEDS ORDERED: LACTATED RINGERS SOLUTION 1,000 ML IV SCH (15:00)
[2022-04-15] MEDS ORDERED: ceFAZolin SODIUM 1 GM VIAL IVPB ONE (15:10)
[2022-04-15] MEDS ORDERED: BACITRACIN 15 GM TUBE TOPICAL OINTMENT TP ONE (15:45)
[2022-04-15] MEDS ORDERED: ACETAMINOPHEN INJECTION 100 ML IVPB ONE (15:56)
[2022-04-15] MEDS ORDERED: BUPIVACAINE HCL/PF 0.25% (2.5MG/ML) 10 ML VIAL ONE (15:59)
[2022-04-15] MEDS ORDERED: BUPIVACAINE HCL/PF 0.25% (2.5MG/ML) 10 ML VIAL IJ ONE (16:05)
[2022-04-15 17:00] VITALS: RESP 18
[2022-04-15 19:51] VITALS: BP 158/85; PULSE 75; TEMP 97.4
== END 2022-04-15 19:10 | disposition home or self-care (01) ==
LOC: JASUSAT 04:33
PROVIDERS: ATTEND Plastic Surgery
PROC: 0JBH0ZZ Excision of Left Lower Arm Subcutaneous Tissue and Fascia, Open Approach (ICD-10-PCS; principal; 2022-04-15 14:07)
PROC: 0HREX74 Replacement of Left Lower Arm Skin with Autologous Tissue Substitute, Partial Thickness, External Approach (ICD-10-PCS; 2022-04-15 14:07)
PROC: 0HQEXZZ Repair Left Lower Arm Skin, External Approach (ICD-10-PCS; 2022-04-15 14:07)
DX: T81.31XA Disruption of external operation (surgical) wound, not elsewhere classified, initial encounter (principal); Y83.8 Other surgical procedures as the cause of abnormal reaction of the patient, or of later complication, without mention of misadventure at the time of the procedure; Y92.89 Other specified places as the place of occurrence of the external cause
CPT/HCPCS: 87070; 87075; 87186; 87205; 88304-TC; 94760

== ENCOUNTER 2022-04-27 08:49 | Inpatient (IN) | payer OTHER ==
[2022-04-27] MEDS ORDERED: DAPTOMYCIN IVPB ONE ×2 (10:14→12:00)
[2022-04-27] MEDS ORDERED: SODIUM CHLORIDE IVPB ONE ×2 (10:14→12:00)
[2022-04-27 10:47] LABS: BASO % 0.7 % (0-2.0); EOS % 1.2 % (0-4.5); HEMATOCRIT 45.1 % (35.4-49); HEMOGLOBIN 15.5 GM/dL (11.7-16.9); LYMPH % 27.1 % (8-40); MCH 33.3 pg (25.7-33.7); MCHC 34.4 g/dl (32.0-35.9); MEAN PLT VOLUME 8.8 fl (7.5-11.1); MONO % 7.7 % (3.8-10.2); NEUT % 63.3 % (42.8-82.8); PLATELET COUNT 185 10^3/uL (134-434); RBC 4.65 M/mm3 (4.00-5.60); RDW 13.8 % (11.9-15.9)
[2022-04-27 10:57] LABS: CALCIUM 9.5 mg/dL (8.5-10.1)
[2022-04-27 10:58] LABS: ALBUMIN 4.2 g/dl (3.4-5.0); BLOOD UREA NITROGEN 24.9 mg/dL (7-18)
[2022-04-27 11:01] LABS: CREATININE 0.9 mg/dL (0.55-1.3)
[2022-04-27 11:02] LABS: BILIRUBIN,TOTAL 0.4 mg/dL (0.2-1); TOT PROT 7.5 g/dl (6.4-8.2)
[2022-04-27] MEDS: DOXYCYCLINE HYCLATE 100 MG CAPSULE PO SCH (22:13)
[2022-04-27] MEDS: HEPARIN NA (PORCINE) 5,000 UNITS/ML 1ML VIAL SQ SCH (22:13)
[2022-04-28 03:34] VITALS: BMI 32.9
[2022-04-28] MEDS ORDERED: PNEUMOC 20-VAL CONJ-DIP CRM/PF 0.5 ML SYRINGE IM ONE (03:34)
[2022-04-28] MEDS: metoPROLOL SUCCINATE 25 MG TAB.SR.24H (FP) PO SCH (09:56)
[2022-04-28] MEDS: CLOPIDOGREL BISULFATE 75 MG TABLET (FP) PO SCH (09:56)
[2022-04-28] MEDS: DOXYCYCLINE HYCLATE 100 MG CAPSULE PO SCH ×2 (09:56→21:04)
[2022-04-28] MEDS: HEPARIN NA (PORCINE) 5,000 UNITS/ML 1ML VIAL SQ SCH ×2 (09:56→21:04)
[2022-04-28] MEDS: ASPIRIN 81 MG CHEWABLE TABLETS PO SCH (09:56)
[2022-04-28 09:57] LABS: BASO % 0.6 % (0-2.0); HEMATOCRIT 46.1 % (35.4-49); HEMOGLOBIN 15.6 GM/dL (11.7-16.9); LYMPH % 26.7 % (8-40); MCH 32.7 pg (25.7-33.7); MCHC 33.8 g/dl (32.0-35.9); MEAN CELL VOLUME 96.7 fl (80-96); MEAN PLT VOLUME 9.6 fl (7.5-11.1); MONO % 7.6 % (3.8-10.2); NEUT % 63.1 % (42.8-82.8); PLATELET COUNT 189 10^3/uL (134-434); RBC 4.76 M/mm3 (4.00-5.60); RDW 14.1 % (11.9-15.9); WHITE BLOOD COUNT 8.6 K/mm3 (4.0-10.0)
[2022-04-28 10:56] LABS: ALBUMIN 4.1 g/dl (3.4-5.0); CALCIUM 9.3 mg/dL (8.5-10.1)
[2022-04-28 10:57] LABS: BLOOD UREA NITROGEN 30.6 mg/dL (7-18)
[2022-04-28 11:00] LABS: BILIRUBIN,TOTAL 0.4 mg/dL (0.2-1); TOT PROT 7.3 g/dl (6.4-8.2)
[2022-04-28] MEDS: DAPTOMYCIN 900 MG in SODIUM CHLORIDE 50 ML IVPB SCH (12:52)
[2022-04-28] MEDS ORDERED: ATORVASTATIN CA 10 MG TABLET (FP) PO SCH (22:00)
[2022-04-29] MEDS: metoPROLOL SUCCINATE 25 MG TAB.SR.24H (FP) PO SCH (10:31)
[2022-04-29] MEDS: ASPIRIN 81 MG CHEWABLE TABLETS PO SCH (10:31)
[2022-04-29] MEDS: DOXYCYCLINE HYCLATE 100 MG CAPSULE PO SCH (10:31)
[2022-04-29] MEDS: DAPTOMYCIN 900 MG in SODIUM CHLORIDE 50 ML IVPB SCH (10:31)
[2022-04-29] MEDS: HEPARIN NA (PORCINE) 5,000 UNITS/ML 1ML VIAL SQ SCH ×2 (10:32→21:32)
[2022-04-29] MEDS: CLOPIDOGREL BISULFATE 75 MG TABLET (FP) PO SCH (10:32)
[2022-04-29 22:22] VITALS: RESP 20
[2022-04-30 07:01] VITALS: BP 132/77; PULSE 67; TEMP 98
[2022-04-30] MEDS: DAPTOMYCIN 900 MG in SODIUM CHLORIDE 50 ML IVPB SCH (10:28)
[2022-04-30] MEDS: CLOPIDOGREL BISULFATE 75 MG TABLET (FP) PO SCH (10:30)
[2022-04-30] MEDS: ASPIRIN 81 MG CHEWABLE TABLETS PO SCH (10:30)
[2022-04-30] MEDS: metoPROLOL SUCCINATE 25 MG TAB.SR.24H (FP) PO SCH (10:30)
[2022-04-30] MEDS: HEPARIN NA (PORCINE) 5,000 UNITS/ML 1ML VIAL SQ SCH (12:07)
== END 2022-04-30 13:32 | disposition home health service (06) | DRG 863 ==
LOC: JER 08:49 → JERBED 09:53 → J8W 20:15
PROVIDERS: ADMIT Internal Medicine; ATTEND Family Medicine
PROC: 05HB33Z Insertion of Infusion Device into Right Basilic Vein, Percutaneous Approach (ICD-10-PCS; principal; 2022-04-29)
PROC: B54MZZA Ultrasonography of Right Upper Extremity Veins, Guidance (ICD-10-PCS; 2022-04-29)
DX: T81.49XA Infection following a procedure, other surgical site, initial encounter (principal); M86.9 Osteomyelitis, unspecified; Z45.2 Encounter for adjustment and management of vascular access device; A49.02 Methicillin resistant Staphylococcus aureus infection, unspecified site; Y83.9 Surgical procedure, unspecified as the cause of abnormal reaction of the patient, or of later complication, without mention of misadventure at the time of the procedure; I10 Essential (primary) hypertension; E78.5 Hyperlipidemia, unspecified; I25.10 Atherosclerotic heart disease of native coronary artery without angina pectoris; Z98.61 Coronary angioplasty status
CPT/HCPCS: 36415; 36569; 71046-TC-FY; 77001-TC-FY; 80053; 82550; 82553; 85025; 85651; 86140; 87040; 93005; 93010; 99291; C1751; C9803-CS; J0878; J1644; U0003; U0005

== ENCOUNTER 2022-05-01 14:21 | Day surgery (SDC) | payer OTHER ==
[2022-05-01 15:04] VITALS: BP 121/83; PULSE 87; RESP 18; TEMP 97.5
[2022-05-01] MEDS ORDERED: DAPTOMYCIN 900 MG in SODIUM CHLORIDE 50 ML IVPB ONE (16:00)
== END 2022-05-01 15:08 | disposition home or self-care (01) ==
LOC: FINFUSION 14:21 → FM/S 14:23 → FINFUSION 15:08
PROVIDERS: ATTEND Internal Medicine Infectious Disease
DX: M71.122 Other infective bursitis, left elbow (principal); A49.02 Methicillin resistant Staphylococcus aureus infection, unspecified site
CPT/HCPCS: 96365; J0878

== ENCOUNTER 2022-05-02 13:59 | Day surgery (SDC) | payer OTHER ==
[2022-05-02 14:44] VITALS: BP 122/71; PULSE 83; RESP 16; TEMP 98.5
[2022-05-02] MEDS ORDERED: DAPTOMYCIN 900 MG in SODIUM CHLORIDE 50 ML IVPB ONE (16:00)
== END 2022-05-02 15:20 | disposition home or self-care (01) ==
LOC: FINFUSION 13:59 → FM/S 14:02 → FINFUSION 15:20
PROVIDERS: ATTEND Internal Medicine Infectious Disease
DX: M71.122 Other infective bursitis, left elbow (principal); A49.02 Methicillin resistant Staphylococcus aureus infection, unspecified site
CPT/HCPCS: 96365; 96367; J0878

== ENCOUNTER 2022-05-03 13:10 | Day surgery (SDC) | payer OTHER ==
[~2022-05-03 13:10] MED LIST changes: -BACITRACIN 15 GM TUBE TOPICAL OINTMENT TP ONE; +DAPTOMYCIN 900 MG in SODIUM CHLORIDE 50 ML IVPB ONE
[2022-05-03 14:52] VITALS: BP 133/65; PULSE 76; RESP 18; TEMP 98.7
== END 2022-05-03 14:52 | disposition home or self-care (01) ==
LOC: FINFUSION 13:10 → FM/S 13:11 → FINFUSION 14:52
PROVIDERS: ATTEND Internal Medicine Infectious Disease
DX: M71.122 Other infective bursitis, left elbow (principal); A49.02 Methicillin resistant Staphylococcus aureus infection, unspecified site
CPT/HCPCS: 96365; J0878

== ENCOUNTER 2022-05-04 10:48 | Day surgery (SDC) | payer OTHER ==
[2022-05-04 13:09] VITALS: BP 147/73; PULSE 89; RESP 18; TEMP 98.4
== END 2022-05-04 11:45 | disposition home or self-care (01) ==
LOC: FINFUSION 10:48 → FM/S 10:48 → FINFUSION 11:45
PROVIDERS: ATTEND Internal Medicine Infectious Disease
DX: M71.122 Other infective bursitis, left elbow (principal); A49.02 Methicillin resistant Staphylococcus aureus infection, unspecified site
CPT/HCPCS: 96365; J0878

== ENCOUNTER 2022-05-05 10:44 | Day surgery (SDC) | payer OTHER ==
[2022-05-05] MEDS ORDERED: DAPTOMYCIN 900 MG in SODIUM CHLORIDE 50 ML IVPB ONE (11:00)
[2022-05-05 11:52] VITALS: PULSE 87; RESP 19; TEMP 98.1
[2022-05-05 12:10] LABS: HEMATOCRIT 46.4 % (35.4-49); HEMOGLOBIN 16.1 G/dL (11.7-16.9); MCH 34.1 pg (25.7-33.7); MCHC 34.7 g/dl (32.0-35.9); MEAN CELL VOLUME 98.4 fl (80-96); MEAN PLT VOLUME 8.8 fl (7.5-11.1); PLATELET COUNT 143.1 10^3/uL (134-434); RBC 4.72 10^6/uL (4.00-5.60); WHITE BLOOD COUNT 6.5 10^3/uL (4.0-10.8)
[2022-05-05 12:16] LABS: CALCIUM 9.8 mg/dl (8.5-10); CREATININE 0.9 mg/dl (0.55-1.3)
[2022-05-05 12:19] VITALS: BP 142/78
[2022-05-05 13:06] LABS: ERYTHROCYTE SEDIMENTATION RATE 9 mm/hr (0-20)
== END 2022-05-05 12:19 | disposition home or self-care (01) ==
LOC: FINFUSION 10:44 → FM/S 10:51 → FINFUSION 12:19
PROVIDERS: ATTEND Internal Medicine Infectious Disease
DX: M71.122 Other infective bursitis, left elbow (principal); A49.02 Methicillin resistant Staphylococcus aureus infection, unspecified site
CPT/HCPCS: 36415; 80048; 82550; 82553; 85027; 85651; 86140; 96365; J0878

== ENCOUNTER 2022-05-06 10:49 | Day surgery (SDC) | payer OTHER ==
[2022-05-06] MEDS ORDERED: DAPTOMYCIN 900 MG in SODIUM CHLORIDE 50 ML IVPB ONE (11:00)
[2022-05-06 12:02] VITALS: BP 140/80; PULSE 68; RESP 18; TEMP 98
== END 2022-05-06 13:53 | disposition home or self-care (01) ==
LOC: FINFUSION 10:49 → FM/S 10:49 → FINFUSION 13:53
PROVIDERS: ATTEND Internal Medicine Infectious Disease
DX: M71.122 Other infective bursitis, left elbow (principal); A49.02 Methicillin resistant Staphylococcus aureus infection, unspecified site
CPT/HCPCS: 96365; G0463-25; J0878

== ENCOUNTER 2022-05-07 10:24 | Day surgery (SDC) | payer OTHER ==
[2022-05-07 11:01] VITALS: BP 145/80; PULSE 76; RESP 18; TEMP 98.1
[2022-05-07] MEDS ORDERED: DAPTOMYCIN 900 MG in SODIUM CHLORIDE 50 ML IVPB ONE (12:00)
== END 2022-05-07 11:09 | disposition home or self-care (01) ==
LOC: FM/S 10:24 → FINFUSION 10:24
PROVIDERS: ATTEND Internal Medicine Infectious Disease
DX: M71.122 Other infective bursitis, left elbow (principal); A49.02 Methicillin resistant Staphylococcus aureus infection, unspecified site
CPT/HCPCS: 96365; 96367; J0878

== ENCOUNTER 2022-05-08 10:30 | Day surgery (SDC) | payer OTHER ==
[2022-05-08 11:47] VITALS: BP 98/67; PULSE 16; RESP 18; TEMP 98.3
[2022-05-08] MEDS ORDERED: DAPTOMYCIN 900 MG in SODIUM CHLORIDE 50 ML IVPB ONE (12:00)
== END 2022-05-08 11:47 | disposition home or self-care (01) ==
LOC: FINFUSION 10:30 → FM/S 10:31 → FINFUSION 11:47
PROVIDERS: ATTEND Internal Medicine Infectious Disease
DX: M71.122 Other infective bursitis, left elbow (principal); A49.02 Methicillin resistant Staphylococcus aureus infection, unspecified site
CPT/HCPCS: 96365; J0878

== ENCOUNTER 2022-05-09 10:28 | Day surgery (SDC) | payer OTHER ==
[2022-05-09 11:08] VITALS: BP 147/78; PULSE 80; RESP 18; TEMP 98.4
[2022-05-09] MEDS ORDERED: DAPTOMYCIN 900 MG in SODIUM CHLORIDE 50 ML IVPB ONE (12:00)
== END 2022-05-09 11:13 | disposition home or self-care (01) ==
LOC: FINFUSION 10:28 → FM/S 10:30 → FINFUSION 11:13
PROVIDERS: ATTEND Internal Medicine Infectious Disease
DX: M71.122 Other infective bursitis, left elbow (principal); A49.02 Methicillin resistant Staphylococcus aureus infection, unspecified site
CPT/HCPCS: 96365; J0878

== ENCOUNTER 2022-05-10 11:10 | Day surgery (SDC) | payer OTHER ==
[2022-05-10 11:40] VITALS: PULSE 76; RESP 19; TEMP 98.9
[2022-05-10 12:40] VITALS: BP 110/62
== END 2022-05-10 12:25 | disposition home or self-care (01) ==
LOC: FINFUSION 11:10 → FM/S 11:18 → FINFUSION 12:25
PROVIDERS: ATTEND Internal Medicine Infectious Disease
DX: M71.122 Other infective bursitis, left elbow (principal); A49.02 Methicillin resistant Staphylococcus aureus infection, unspecified site
CPT/HCPCS: 96365; J0878

== ENCOUNTER 2022-05-11 10:29 | Day surgery (SDC) | payer OTHER ==
[2022-05-11 10:53] VITALS: RESP 18; TEMP 98.1
[2022-05-11 11:20] VITALS: BP 132/68; PULSE 80
== END 2022-05-11 11:20 | disposition home or self-care (01) ==
LOC: FINFUSION 10:29 → FM/S 10:31 → FINFUSION 11:20
PROVIDERS: ATTEND Internal Medicine Infectious Disease
DX: M71.122 Other infective bursitis, left elbow (principal); A49.02 Methicillin resistant Staphylococcus aureus infection, unspecified site
CPT/HCPCS: 96365; J0878

== ENCOUNTER 2022-05-12 10:21 | Day surgery (SDC) | payer OTHER ==
[2022-05-12 11:15] VITALS: RESP 18; TEMP 98.1
[2022-05-12 11:46] VITALS: BP 126/80; PULSE 89
[2022-05-12 11:56] LABS: CALCIUM 9.1 mg/dl (8.5-10); CREATININE 0.9 mg/dl (0.55-1.3)
[2022-05-12 12:18] LABS: HEMOGLOBIN 15.9 G/dL (11.7-16.9); MCH 34.4 pg (25.7-33.7); MCHC 35.3 g/dl (32.0-35.9); MEAN CELL VOLUME 97.4 fl (80-96); MEAN PLT VOLUME 8.9 fl (7.5-11.1); PLATELET COUNT 139.9 10^3/uL (134-434); RBC 4.62 10^6/uL (4.00-5.60); RDW 13.6 % (11.9-15.9); WHITE BLOOD COUNT 9.2 10^3/uL (4.0-10.8)
[2022-05-12 12:38] LABS: ERYTHROCYTE SEDIMENTATION RATE 16 mm/hr (0-20)
== END 2022-05-12 11:47 | disposition home or self-care (01) ==
LOC: FINFUSION 10:21 → FM/S 10:25 → FINFUSION 11:47
PROVIDERS: ATTEND Internal Medicine Infectious Disease
DX: M71.122 Other infective bursitis, left elbow (principal); A49.02 Methicillin resistant Staphylococcus aureus infection, unspecified site
CPT/HCPCS: 36415; 80048; 82550; 82553; 85027; 85651; 86140; 96365; J0878

== ENCOUNTER 2022-05-13 10:20 | Day surgery (SDC) | payer OTHER ==
[2022-05-13] MEDS ORDERED: DAPTOMYCIN 900 MG in SODIUM CHLORIDE 50 ML IVPB ONE (11:15)
[2022-05-13 11:43] VITALS: BP 136/78; PULSE 76; RESP 18; TEMP 98.7
== END 2022-05-13 11:43 | disposition home or self-care (01) ==
LOC: FINFUSION 10:20 → FM/S 10:21 → FINFUSION 11:43
PROVIDERS: ATTEND Internal Medicine Infectious Disease
DX: M71.122 Other infective bursitis, left elbow (principal); A49.02 Methicillin resistant Staphylococcus aureus infection, unspecified site
CPT/HCPCS: 96365; J0878

== ENCOUNTER 2022-05-14 10:12 | Day surgery (SDC) | payer OTHER ==
[2022-05-14 11:05] VITALS: BP 120/52; PULSE 67; RESP 18; TEMP 98.1
[2022-05-14] MEDS ORDERED: DAPTOMYCIN 900 MG in SODIUM CHLORIDE 50 ML IVPB ONE (12:00)
== END 2022-05-14 11:55 | disposition home or self-care (01) ==
LOC: FINFUSION 10:12 → FM/S 10:16 → FINFUSION 11:55
PROVIDERS: ATTEND Internal Medicine Infectious Disease
DX: M71.122 Other infective bursitis, left elbow (principal); A49.02 Methicillin resistant Staphylococcus aureus infection, unspecified site
CPT/HCPCS: 96365; J0878

== ENCOUNTER 2022-05-15 10:25 | Day surgery (SDC) | payer OTHER ==
[2022-05-15] MEDS ORDERED: DAPTOMYCIN 900 MG in SODIUM CHLORIDE 50 ML IVPB ONE (11:00)
[2022-05-15 11:01] VITALS: BP 151/83; PULSE 79; RESP 18; TEMP 82
== END 2022-05-15 11:02 | disposition home or self-care (01) ==
LOC: FINFUSION 10:25 → FM/S 10:25 → FINFUSION 11:02
PROVIDERS: ATTEND Internal Medicine Infectious Disease
DX: M71.122 Other infective bursitis, left elbow (principal); A49.02 Methicillin resistant Staphylococcus aureus infection, unspecified site
CPT/HCPCS: 96365; J0878

== ENCOUNTER 2022-05-20 15:12 | Inpatient (IN) | payer OTHER ==
[2022-05-20] MEDS ORDERED: ENOXAPARIN NA (PORCINE) 100 MG/1 ML DISP.SYRIN SQ ONE ×2 (16:04→16:27)
[2022-05-20 16:59] LABS: BASO % 1.3 % (0-2.0); EOS % 3.2 % (0-4.5); HEMATOCRIT 42.8 % (35.4-49); HEMOGLOBIN 14.2 GM/dL (11.7-16.9); LYMPH % 16.1 % (8-40); MCH 32.1 pg (25.7-33.7); MCHC 33.1 g/dl (32.0-35.9); MEAN CELL VOLUME 96.9 fl (80-96); MEAN PLT VOLUME 9.3 fl (7.5-11.1); MONO % 8.1 % (3.8-10.2); NEUT % 71.3 % (42.8-82.8); PLATELET COUNT 237 10^3/uL (134-434); RBC 4.42 M/mm3 (4.00-5.60); RDW 14.3 % (11.9-15.9); WHITE BLOOD COUNT 10.9 K/mm3 (4.0-10.0)
[2022-05-20 17:06] LABS: INR 1.05 (0.83-1.09); PROTHROMBIN TIME (PATIENT) 12.1 SEC (9.7-13.0)
[2022-05-20 17:09] LABS: ACTIVATED PTT 28.3 SECONDS (25.2-36.5)
[2022-05-20 17:18] LABS: CALCIUM 9.1 mg/dL (8.5-10.1)
[2022-05-20 17:19] LABS: ALBUMIN 3.4 g/dl (3.4-5.0)
[2022-05-20 17:22] LABS: CREATININE 0.9 mg/dL (0.55-1.3)
[2022-05-20 17:24] LABS: BILIRUBIN,TOTAL 0.4 mg/dL (0.2-1); TOT PROT 7.2 g/dl (6.4-8.2)
[2022-05-20] MEDS ORDERED: ACETAMINOPHEN 325 MG TABLET (FP) PO PRN (18:08)
[2022-05-20] MEDS ORDERED: oxyCODONE HCL 5 MG TABLET PO PRN (18:08)
[2022-05-20] MEDS ORDERED: HEPARIN NA (PORCINE) 5,000 UNITS/ML 1ML VIAL SQ SCH (22:00)
[2022-05-20 23:37] VITALS: BMI 33.2
[2022-05-21] MEDS ORDERED: ENOXAPARIN NA (PORCINE) 120 MG/0.8 ML DISP.SYRIN SQ SCH (04:30)
[2022-05-21] MEDS: metoPROLOL SUCCINATE 25 MG TAB.SR.24H (FP) PO SCH (09:20)
[2022-05-21] MEDS: CLOPIDOGREL BISULFATE 75 MG TABLET (FP) PO SCH (09:20)
[2022-05-21] MEDS: ATORVASTATIN CA 10 MG TABLET (FP) PO SCH ×2 (09:20→09:45)
[2022-05-21] MEDS ORDERED: metoPROLOL SUCCINATE 25 MG TAB.SR.24H (FP) PO SCH (10:00)
[2022-05-21] MEDS ORDERED: ASPIRIN 81 MG CHEWABLE TABLETS PO SCH (10:00)
[2022-05-21] MEDS ORDERED: PATIENT'S OWN MEDICATION (NON-FORMULARY) (Candesartan/Hydrochlorothiazid [Candesartan-Hctz PO SCH (10:00)
[2022-05-21] MEDS: LOSARTAN 50MG/HCTZ 12.5MG 1 TAB PO SCH (10:46)
[2022-05-21 11:30] LABS: HEMOGLOBIN 14.7 GM/dL (11.7-16.9); MCH 31.9 pg (25.7-33.7); MCHC 32.8 g/dl (32.0-35.9); MEAN CELL VOLUME 97.2 fl (80-96); MEAN PLT VOLUME 9.1 fl (7.5-11.1); PLATELET COUNT 219 10^3/uL (134-434); RBC 4.63 M/mm3 (4.00-5.60); RDW 13.8 % (11.9-15.9); WHITE BLOOD COUNT 9.2 K/mm3 (4.0-10.0)
[2022-05-21 11:36] LABS: INR 1.07 (0.83-1.09); PROTHROMBIN TIME (PATIENT) 12.3 SEC (9.7-13.0)
[2022-05-21 11:42] LABS: MAGNESIUM 2.4 mg/dL (1.8-2.4)
[2022-05-21 11:43] LABS: ALBUMIN 3.9 g/dl (3.4-5.0)
[2022-05-21 11:45] LABS: BLOOD UREA NITROGEN 24.8 mg/dL (7-18); CREATININE 0.9 mg/dL (0.55-1.3)
[2022-05-21 11:47] LABS: TOT PROT 7.3 g/dl (6.4-8.2)
[2022-05-21 11:48] LABS: BILIRUBIN,TOTAL 0.4 mg/dL (0.2-1)
[2022-05-21] MEDS: ENOXAPARIN NA (PORCINE) 120 MG/0.8 ML DISP.SYRIN SQ SCH (17:01)
[2022-05-22 01:58] VITALS: RESP 18
[2022-05-22] MEDS: ENOXAPARIN NA (PORCINE) 120 MG/0.8 ML DISP.SYRIN SQ SCH (06:03)
[2022-05-22 08:10] LABS: BASO % 0.7 % (0-2.0); EOS % 3.9 % (0-4.5); HEMATOCRIT 41.6 % (35.4-49); HEMOGLOBIN 14.1 GM/dL (11.7-16.9); LYMPH % 18.7 % (8-40); MCH 32.9 pg (25.7-33.7); MCHC 33.8 g/dl (32.0-35.9); MEAN CELL VOLUME 97.2 fl (80-96); MEAN PLT VOLUME 8.4 fl (7.5-11.1); MONO % 7.9 % (3.8-10.2); NEUT % 68.8 % (42.8-82.8); PLATELET COUNT 198 10^3/uL (134-434); RBC 4.28 M/mm3 (4.00-5.60); RDW 13.9 % (11.9-15.9); WHITE BLOOD COUNT 8.8 K/mm3 (4.0-10.0)
[2022-05-22 08:27] LABS: ALBUMIN 3.3 g/dl (3.4-5.0); BLOOD UREA NITROGEN 19.1 mg/dL (7-18)
[2022-05-22 08:28] LABS: CALCIUM 8.8 mg/dL (8.5-10.1)
[2022-05-22 08:30] LABS: CREATININE 0.9 mg/dL (0.55-1.3)
[2022-05-22 08:31] LABS: TOT PROT 6.8 g/dl (6.4-8.2)
[2022-05-22 08:32] LABS: BILIRUBIN,TOTAL 0.3 mg/dL (0.2-1)
[2022-05-22 09:06] VITALS: BP 141/93; PULSE 96; TEMP 98.4
[2022-05-22] MEDS ORDERED: APIXABAN 5 MG TABLET PO SCH (10:00)
[2022-05-22] MEDS: metoPROLOL SUCCINATE 25 MG TAB.SR.24H (FP) PO SCH (10:06)
[2022-05-22] MEDS: LOSARTAN 50MG/HCTZ 12.5MG 1 TAB PO SCH (10:06)
[2022-05-22] MEDS: ATORVASTATIN CA 10 MG TABLET (FP) PO SCH (10:06)
[2022-05-22] MEDS: CLOPIDOGREL BISULFATE 75 MG TABLET (FP) PO SCH (10:06)
== END 2022-05-22 12:17 | disposition home or self-care (01) | DRG 315 ==
LOC: JER 15:12 → JERBED 16:01 → J4S 20:01
PROVIDERS: ADMIT Family Medicine; ATTEND Family Medicine
DX: T82.818A Embolism due to vascular prosthetic devices, implants and grafts, initial encounter (principal); I82.621 Acute embolism and thrombosis of deep veins of right upper extremity; M86.622 Other chronic osteomyelitis, left humerus; L08.9 Local infection of the skin and subcutaneous tissue, unspecified; E78.5 Hyperlipidemia, unspecified; Z95.5 Presence of coronary angioplasty implant and graft; I25.2 Old myocardial infarction; I65.23 Occlusion and stenosis of bilateral carotid arteries; I25.10 Atherosclerotic heart disease of native coronary artery without angina pectoris; A49.02 Methicillin resistant Staphylococcus aureus infection, unspecified site; I73.9 Peripheral vascular disease, unspecified; I10 Essential (primary) hypertension; Y83.9 Surgical procedure, unspecified as the cause of abnormal reaction of the patient, or of later complication, without mention of misadventure at the time of the procedure
CPT/HCPCS: 36415; 71045-TC-FY; 80048; 80053; 80061; 82550; 82553; 83036; 83735; 85025; 85027; 85610; 85651; 85730; 86140; 86850; 86900; 86901; 93005; 93010; 93971; 96365; 96367; 99285-25; C9803-CS; J0875; J0878; U0003; U0005

== ENCOUNTER 2022-05-30 09:52 | Day surgery (SDC) | payer OTHER ==
[2022-05-30] MEDS ORDERED: DALBAVANCIN HCL 1,500 MG in DEXTROSE 5%-WATER - 500 ML IVPB ONE (10:30)
[2022-05-30 11:46] VITALS: BP 122/78; PULSE 82; RESP 16; TEMP 98.4
== END 2022-05-30 11:30 | disposition home or self-care (01) ==
LOC: FINFUSION 09:52 → FM/S 09:56 → FINFUSION 11:30
PROVIDERS: ATTEND Internal Medicine Infectious Disease
PROC: 3E033GC Introduction of Other Therapeutic Substance into Peripheral Vein, Percutaneous Approach (ICD-10-PCS; principal; 2022-05-30)
DX: M71.122 Other infective bursitis, left elbow (principal)
CPT/HCPCS: 96365; J0875

== ENCOUNTER 2022-08-08 16:59 | Emergency (ER) | payer OTHER ==
[2022-08-08 17:21] VITALS: TEMP 98.2; BMI 32.0
[2022-08-08 17:59] LABS: HEMATOCRIT 41.1 % (35.4-49); MCH 33.5 pg (25.7-33.7); MCHC 34.1 g/dl (32.0-35.9); MEAN CELL VOLUME 98.3 fl (80-96); MEAN PLT VOLUME 8.1 fl (7.5-11.1); PLATELET COUNT 244.9 10^3/uL (134-434); RBC 4.18 10^6/uL (4.00-5.60); RDW 13.9 % (11.9-15.9); WHITE BLOOD COUNT 15.1 10^3/uL (4.0-10.8)
[2022-08-08 18:25] LABS: ALBUMIN 3.9 g/dl (3.4-5.0); BILIRUBIN,TOTAL 0.8 mg/dl (0.2-1); CALCIUM 9.2 mg/dl (8.5-10); CREATININE 1.1 mg/dl (0.55-1.3); TOT PROT 7.4 g/dl (6.4-8.2)
[2022-08-08] MEDS ORDERED: CIPROFLOXACIN 500 MG TABLET (RESTRICTED TO ID) PO ONE (20:45)
[2022-08-08] MEDS ORDERED: CIPROFLOXACIN 250 MG TABLET (RESTRICTED TO ID) PO ONE (20:48)
[2022-08-08] MEDS ORDERED: PHENAZOPYRIDINE HCL 100 MG TABLET (FP) PO ONE (20:50)
[2022-08-08 20:53] VITALS: BP 115/62; PULSE 103; RESP 18
[2022-08-08] MEDS ORDERED: PHENAZOPYRIDINE HCL 100 MG TABLET (FP) ONE (20:53)
[2022-08-08 21:10] LABS: PLATELET ESTIMATE ADEQUATE
== END 2022-08-08 21:10 | disposition home or self-care (01) ==
LOC: FER 16:59
DX: N39.0 Urinary tract infection, site not specified (principal); N40.0 Benign prostatic hyperplasia without lower urinary tract symptoms
CPT/HCPCS: 36415; 74177-TC; 80053; 81003; 81015; 85027; 87086; 87186; 99285-25; Q9967

== ENCOUNTER 2024-04-12 13:18 | Emergency (ER) | payer OTHER, MEDICARE ==
[2024-04-12 13:26] VITALS: BP 197/90; PULSE 71; RESP 18; TEMP 97.4; BMI 31.9
== END 2024-04-12 15:14 | disposition home or self-care (01) ==
LOC: JER 13:18 → JERFT 13:18
PROC: 2W3RX1Z Immobilization of Left Lower Leg using Splint (ICD-10-PCS; principal; 2024-04-12)
DX: S82.832A Other fracture of upper and lower end of left fibula, initial encounter for closed fracture (principal); W23.0XXA Caught, crushed, jammed, or pinched between moving objects, initial encounter; Y99.0 Civilian activity done for income or pay
CPT/HCPCS: 29515; 73610-TC-LT-FY; 99283-25